=== PATIENT | female | born 1975 | race Caucasian/White ===

== ENCOUNTER 2022-09-17 05:54 | Day surgery (SDC) | payer OTHER ==
[2022-09-16 08:58] VITALS: BMI 23.1
[2022-09-17] MEDS ORDERED: EPINEPHrine 1 MG/ML AMP ONE (06:24)
[2022-09-17] MEDS ORDERED: Methylene Blue 50 MG/10 ML AMPUL ONE (06:25)
[2022-09-17] MEDS ORDERED: Bupivacaine PF 0.5% 30 ML VIAL ONE (06:25)
[2022-09-17] MEDS ORDERED: Ondansetron PF 4 MG/2 ML Vial ONE ×2 (06:36→11:08)
[2022-09-17] MEDS ORDERED: Fentanyl 100 MCG/2 ML VIAL ONE ×3 (06:36→08:57)
[2022-09-17] MEDS ORDERED: Dexamethasone 4 mg/ml Vial ONE (06:36)
[2022-09-17] MEDS ORDERED: Rocuronium Bromide 10 MG/ML (10ML VIAL) ONE (06:36)
[2022-09-17] MEDS ORDERED: Lidocaine 1% PF 5 ML VIAL ONE (06:36)
[2022-09-17] MEDS ORDERED: PROPOFOL 20 ML ONE ×2 (06:36)
[2022-09-17] MEDS ORDERED: Ketorolac Tromethamine 30 MG/ML VIAL ONE (06:37)
[2022-09-17] MEDS ORDERED: Midazolam HCl 2 mg/2 ml Vial ONE (06:48)
[2022-09-17] MEDS ORDERED: CEFAZOLIN 2 GM VIAL ONE (06:48)
[2022-09-17] MEDS ORDERED: PHENYLEPHRINE-NS 100 MCG/ML 10 ML SYRINGE ONE (07:14)
[2022-09-17] MEDS ORDERED: ePHEDrine Sulfate 50 MG/10 ML VIAL ONE (07:17)
[2022-09-17] MEDS ORDERED: Dexmedetomidine 200 MCG/2 ML VIAL ONE (08:48)
[2022-09-17] MEDS ORDERED: Acetaminophen 500 MG TAB ONE (10:35)
[2022-09-17] MEDS ORDERED: HYDROcodone/Acetaminophen 7.5/325 mg Tablet ONE (11:08)
[2022-09-17 11:50] LABS: Hemoglobin 11.9 g/dL (12.0-15.5); Platelet Count 183 10x3/uL (150-450)
== END 2022-09-17 13:30 | disposition home or self-care (01) ==
LOC: CSHSDC 05:54
PROVIDERS: ATTEND Obstetrics & Gynecology
PROC: 0UT74ZZ Resection of Bilateral Fallopian Tubes, Percutaneous Endoscopic Approach (ICD-10-PCS; principal; 2022-09-17)
PROC: 0UT94ZZ Resection of Uterus, Percutaneous Endoscopic Approach (ICD-10-PCS; principal; 2022-09-17)
DX: D25.9 Leiomyoma of uterus, unspecified (principal); N80.03 Adenomyosis of the uterus; N92.0 Excessive and frequent menstruation with regular cycle; N72 Inflammatory disease of cervix uteri; N87.9 Dysplasia of cervix uteri, unspecified; K66.0 Peritoneal adhesions (postprocedural) (postinfection)
CPT/HCPCS: 85014; 85018; 85049; 88307; C1765; C1776; J0171; J1100; J1885; J2250; J2405; J2704; J3010; Q9968; S0020

== ENCOUNTER 2023-02-28 09:49 | Outpatient (CLI) | payer OTHER | END 2023-02-28 09:50 | disposition home or self-care (01) | LOC: CSHMAMMO 09:49 | PROVIDERS: ATTEND Family Medicine | DX: Z12.31 Encounter for screening mammogram for malignant neoplasm of breast (principal); Z91.89 Other specified personal risk factors, not elsewhere classified; Z98.82 Breast implant status; Z80.3 Family history of malignant neoplasm of breast | CPT/HCPCS: 77063; 77067 ==